=== PATIENT | female | born 1930 | race Asian ===

== ENCOUNTER 2016-12-24 10:30 | Emergency (ER) | payer MEDICARE ==
[~2016-12-24] VITALS: Ht 162.6 cm; Wt 59.1 kg
[2016-12-24 10:37] VITALS: BP 141/63; PULSE 75; RESP 16; O2SAT 98
--- NOTE | 2016-12-24 10:47 | ED.REPORT ---
HPI-General Illness Date of Service Dec 24, 2016 ED Provider: Mt Clifford MD Pt is a healthy 86 year old female who presents to the ED via EMS complaining of constant, "sharp" right shoulder pain onset last night s/p falling. She reports that her pain does not radiate and has a 7/10 severity that is exacerbated by movement. She states she slipped on a plastic bag at home last night and extended her arms to catch herself when she heard a "click" in her right shoulder. She laid on the ground for 10-15 minutes before she was able to get up. Pt denies loss of consciousness, headache, vision changes, SOB, lightheadedness, bowel or bladder incontinence, urinary retention, chest pain, elbow pain, back pain, neck pain, wrist pain, or injury to any other body part. Patient is not on blood thinners and did not hit her head. She was feeling well prior to falling and did not have any chest pain, lightheadedness, dizziness, or other symptoms; she states that she merely slipped on a bag. Nursing Notes Stated Complaint: RT SHOULDER PAIN Chief Complaint: Extremity Trauma Nursing Notes Reviewed: Yes General Time Seen by MD: 10:42 Chief Complaint Other (Right shoulder pain ) Hx Obtained From: Patient Arrived By: Ambulance Sudden in Onset?: No Onset Occurred: Yesterday Symptom Duration: Constant Caused by: Fall on ground Context: Occurred at: Home injury Location: : Shoulder right Quality: Painful, Sharp Radiation: : Does not radiate Severity: Current: Pain level 7 out of 10 Severity: Maximum: Pain level 7 out of 10 Pertinent Negative: Pt denies other symptoms Exacerbated by: Moving affected area Pertinent Negative: Relieved by nothing Recent Healthcare: No recent doctor visit, No recent hospitalization Similar Sx Previous: No Past Medical History Past Medical History Denies Past Surgical History Stent in spine in 2007 Social History Other Social History: Lives alone Ambulatory Status Independent Review of Systems Right shoulder pain No wrist pain No elbow pain Full Review of Systems Constitutional: Denies: Chills, Fever, Weakness - generalized Eyes: Denies: Diplopia Ears / Nose / Throat: Denies: Sore throat Respiratory: Denies: Shortness of breath Cardiovascular: Denies: Chest pain GI: Denies: Abdominal pain Female: Denies: Incontinence, Urination decreased Musculoskeletal: Denies: Back pain, Neck pain Skin: Denies Rash Neurologic: Denies: Change LOC, Headache, Lightheaded, Vision change Psychiatric: Denies: Change mental status Complete sys rev & neg: except as marked. Physical Exam Nursing note and vitals reviewed. Constitutional: Well-developed, well-nourished. Not diaphoretic. Head: Normocephalic and atraumatic. Mouth/Throat: Oropharynx is clear and moist. No oropharyngeal exudate. Eyes: EOM are normal. Pupils are equal, round, and reactive to light. Neck: Supple, no tracheal deviation. Cardiovascular: Normal rate, regular rhythm. Equal and intact distal pulses throughout. Pulmonary/Chest: Effort normal and breath sounds normal. No respiratory distress. Abdominal: Soft. No distension. There is no tenderness, rebound, or guarding. Bowel sounds present. Musculoskeletal: No stepoff or tenderness to her cervical, thoracic, or lumbar spine. Deformity to R shoulder. Unable to internally rotate R shoulder. No elbow or wrist tenderness. No snuffbox tenderness to palpation. Neurological: AOx3. Grossly nonfocal exam. Strength and sensation intact and equal to bilateral upper and lower extremities. Skin: Warm and dry, no rashes or pallor appreciated. Psychiatric: Appropriate mood and affect. Behavior appears normal. Vital Signs Vital Signs Date Time Temp Pulse Resp B/P Pulse Ox O2 Delivery O2 Flow Rate FiO2 12/24/16 15:28 66 13 150/70 95 Room Air 12/24/16 12:12 78 15 145/56 99 Room Air 12/24/16 10:37 36.8 75 16 141/63 98 Room Air Initial VS: Reviewed Interpretation & Diagnostics Lab Results Interpretation Test 12/24/16 11:45 Hold Purple Top Tube Received (Received) Hold Blue Top Tube Received (Received) Hold [place] Top Tube Received (Received) X-Ray Interpretation Xray Interpretation: Right Shoulder X-Ray: IMPRESSION: Anteroinferior dislocation of the humeral head with an impaction fracture (prominent Hill-Sachs deformity) of the greater tuberosity of the humeral head. A small avulsion fracture may be arising from either the humeral head or the glenoid fossa. A bony Bankhart injury is suspected. CT would be helpful for better characterization following reduction. Dictated by: Ricardo Roth M.D. on 12/24/2016 at 11:24 Approved by: Ricardo Roth M.D. on 12/24/2016 at 11:25 X-Ray Ordered: Shoulder right Interpretation / Wet Read by: Interpret - Radiologist Xray Interpretation: Right Humerus X-Ray: IMPRESSION: Anterior dislocation of the right humeral head with impaction of the superior humeral head along the anteroinferior aspect of the glenoid fossa. Small avulsion fracture is noted. Dictated by: Ricardo Roth M.D. on 12/24/2016 at 11:22 Approved by: Ricardo Roth M.D. on 12/24/2016 at 11:24 X-Ray Ordered: Humerus right Interpretation / Wet Read by: Interpret - Radiologist Xray Interpretation: Shoulder X-Ray: IMPRESSION: Unchanged alignment of the right shoulder with continued anteroinferior dislocation of the humeral head with an associated prominent Hill-Sachs deformity and probable bony Bankart. Dictated by: Ricardo Roth M.D. on 12/24/2016 at 12:47 Approved by: Ricardo Roth M.D. on 12/24/2016 at 12:48 X-Ray Ordered: Shoulder right Interpretation / Wet Read by: Interpret - Radiologist CT Head Interpretation IMPRESSION: 1. No acute intracranial hemorrhage. 2. Chronic small vessel ischemic changes and parenchymal volume loss. Dictated by: Ricardo Roth M.D. on 12/24/2016 at 12:11 Approved by: Ricardo Roth M.D. on 12/24/2016 at 12:13 Study: Head CT no contrast Interpretation / Wet Read by: Interpret - Radiologist Procedures Proced Mod Sedation/Analgesia Time: 14:35 Procedure Performed by: ED physician Sedation Time: 31 - 45 min Consent / Setup: Informed consent provided, Consent from patient Indication: Shoulder reduction Preparation: front desk monitor applied, Pulse oximeter applied, Constant attendance, IV access established, Supplemental oxygen, Procedure explained, Suction available, End tidal CO2 mon applied Mallampati: Class & Anatomy: 2 top tonsil/uvula/palate Airway Exam: Normal facial anatomy, Normal neck anatomy CVS/Resp Exam: Normal breath sounds Neuro Exam: Alert, No acute distress, Responsive Sedation: Sedation: Ketamine, Sedation: Propofol ASA Classification: 2 mild systemic disease Response During Procedure: Handled secretions adeq, Maintained airway well, Oxygenation stable, Sedation appropriate, Vital signs stable Complications During/After: None Reversal: None required Mental Status After Procedure: Alert, Oriented X3 Post-Procedure: Alert prior to discharge, Pt rtn pre-proc baseline Attestation: I performed procedure, I performed sedation Reduction Dislocated Shoulder Time: 13:12 Procedure Performed by: ED physician Consent / Setup: Informed consent provided, Consent from patient, Time-out performed, Hand hygiene observed, Stand sterile technique Procedural Sedation/Analgesia: Sedation: Ketamine, Sedation: Propofol Which Shoulder and Technique: Right shoulder, Scapular manipulation, Traction- counter-traction Neurovascular: Intact pre-procedure, Intact post-procedure Post-Procedure / Complications: Reduced per examination, Procedure successful, X-ray disloc reduced, Tolerated procedure well, Patient stable Procedures Proced Mod Sedation/Analgesia Physician left room at 1500. Respiratory therapy still in attendance. Time: 14:39 Procedure Performed by: ED physician Consent / Setup: Informed consent provided, Consent from patient, Time-out performed, Hand hygiene observed, Position supine Indication: Shoulder reduction Preparation: front desk monitor applied, Pulse oximeter applied, Constant attendance, IV access established, Eval last meal time, Supplemental oxygen, Procedure explained, End tidal CO2 mon applied VS Prior to Procedure: All vital signs normal Airway Exam: Normal anatomy CVS/Resp Exam: Normal breath sounds, Normal heart sounds Neuro Exam: Alert Sedation: Sedation: Ketamine, Sedation: Propofol ASA Classification: 1 normal healthy patient Response During Procedure: Handled secretions adeq, Maintained airway well, Oxygenation stable, Sedation appropriate, Vital signs stable Complications During/After: None Reversal: None required Mental Status After Procedure: Alert Post-Procedure: Alert prior to discharge, Vital signs normal Attestation: I performed procedure, I performed sedation Reduction Dislocated Shoulder Time: 14:39 Procedure Performed by: ED physician Consent / Setup: Informed consent provided, Consent from patient, Time-out performed, Oxygen administered, Pulse oximeter applied, front desk monitor applied , Hand hygiene observed Procedural Sedation/Analgesia: Sedation: Ketamine, Sedation: Propofol Which Shoulder and Technique: Right shoulder Neurovascular: Intact pre-procedure, Intact post-procedure Post-Procedure / Complications: Not reduced per exam, Procedure not successful , Tolerated procedure well, Patient stable Re-Eval/Medical Decision Med Decision/Clinical Course 86-year-old female presenting to the ED after a clear mechanical fall yesterday evening, now with severe right shoulder pain. She was not having any chest pain , dyspnea, lightheadedness, or any other complaints prior to the fall that would suggest anything other than a mechanical etiology. She has no other complaints at this time aside from her right shoulder pain and chronic back pain. X-ray demonstrates an anterior inferior shoulder dislocation of her right arm with a Hill-Sachs deformity and possible bony Bankart lesion. I discussed the patient with Dr. Albrecht, as per below; reduction and then sling with follow up tomorrow to make an appointment likely for early next week. Reduction performed as per above; initially unsuccessful using a local nerve block, however after adequate sedation was achieved, we were able to reduce with both clinical and radiographic evidence of adequate reduction. Neurovascularly intact both pre-and post procedure. A CT of the patient's head was obtained given her age and the fall; this was negative. No neck or back pain acutely and no bony tenderness to palpation, no bowel or bladder incontinence, urinary retention, etc. Plan as per above. Plan discharge home with very careful return precautions, PCP and ortho follow-up. Patient agreeable to the plan as stated, no further questions. Source of Hx: Old records Time of Eval: 13:12 Re-Evaluation/Progress Note: Pt rechecked. Performed right shoulder reduction that was unsuccessful. Pt reported nausea and dizziness. Time of Eval: 14:37 Re-Evaluation/Progress Note: Pt rechecked. Performed right shoulder reduction again. 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 Albrecht. Reduce shoulder, sling, and F/U in clinic. Counseled Regarding: Diagnosis, Lab results, Need for follow-up, When/why to return to ED Discharge & Departure Primary Impression: Closed fracture dislocation of shoulder Encounter type: initial encounter Laterality: right Qualified Code: S42.91XA - Fracture of right shoulder girdle, part unspecified, initial encounter for closed fracture Disposition: Home Discharge Condition All VS Reviewed: Yes Condition: Stable Referrals: Luis Osman MD (PCP) Scribe Attestation Portions of this note were transcribed by Karla Boles and Jordan Pal. I, Dr. Clifford, personally performed the history, physical exam and medical decision-making; I reviewed and confirmed the accuracy of the information in the transcribed note. Signed by: Elizabeth Paez, 12/24/16. copies to: Luis Osman MD, William B MD Dec 24, 2016 10:47 Karla Boles Dec 24, 2016 11:35 JORDAN PAL Dec 24, 2016 15:14
[2016-12-24] MEDS ORDERED: HYDROmorphone 0.5 mg/0.5 mL iSecure Syringe ONE (12:05)
[2016-12-24 12:12] VITALS: BP 145/56; PULSE 78; RESP 15; O2SAT 99
--- NOTE | 2016-12-24 12:25 | DRSVH ---
PROCEDURE: X-RAY RIGHT HUMERUS, MINIMUM TWO VIEWS ([id number]) INDICATIONS: Right shoulder injury TECHNIQUE: 2 views of the humerus were acquired. COMPARISON: [facility], CR, XR SHOULDER MIN 2VW RT, 12/24/2016, 11:23. FINDINGS: Anterior dislocation of the right humeral head with respect to the glenoid is present. An avulsion f racture overlying the greater tuberosity is noted, which may have either arising from the glenoid fos sa or the humeral head. Prominent Hill-Sachs deformity is present. There is soft tissue swelling. No additional fractures are appreciated. IMPRESSION: Anterior dislocation of the right humeral head with impaction of the superior humeral hea d along the anteroinferior aspect of the glenoid fossa. Small avulsion fracture is noted. Dictated by: Ricardo Roth M.D. on 12/24/2016 at 11:22 Approved by: Ricardo Roth M.D. on 12/24/2016 at 11:24
--- NOTE | 2016-12-24 12:27 | DRSVH ---
PROCEDURE: X-RAY RIGHT SHOULDER, MINIMUM TWO VIEWS ([id number]) INDICATIONS: Right shoulder injury. TECHNIQUE: 3 views of the shoulder were acquired. COMPARISON: [facility], CR, XR HUMERUS 2VW RT, 12/24/2016, 11:23. FINDINGS: Bones: An anteroinferior dislocation of the humeral head with respect to the glenoid is evident with impaction of the greater tuberosity of the humeral head along the undersurface of the glenoid. A sma ll avulsion fracture along the periphery of the joint space is identified, laterally. Degenerative c hanges of this joint are noted. No additional fractures are appreciated. No suspicious osseous lesi ons are identified. Soft tissues: No suspicious soft tissue calcifications. IMPRESSION: Anteroinferior dislocation of the humeral head with an impaction fracture (prominent Hill -Sachs deformity) of the greater tuberosity of the humeral head. A small avulsion fracture may be ar ising from either the humeral head or the glenoid fossa. A bony Bankhart injury is suspected. CT wo uld be helpful for better characterization following reduction. Dictated by: Ricardo Roth M.D. on 12/24/2016 at 11:24 Approved by: Ricardo Roth M.D. on 12/24/2016 at 11:25
[2016-12-24] MEDS ORDERED: Lidocaine 1% 50 mL Inj NERVEBLOCK ONE (12:55)
--- NOTE | 2016-12-24 13:14 | DRSVH ---
PROCEDURE: CT BRAIN WITHOUT CONTRAST ([id number]) INDICATIONS: fall, head injury TECHNIQUE: Noncontrast 4.5 mm thick angled axial sections acquired from the foramen magnum to the vertex, with c oronal reformats. COMPARISON: None. FINDINGS: Image quality: Motion artifact is present on several imaging sequences. The study is felt to be diag nostic. Brain: There is no acute intra-axial or extra-axial hemorrhage. No extra-axial fluid collection is i dentified. There is no midline shift or mass effect. The orbits are grossly unremarkable. No large areas of diffusely decreased attenuation are evident within the brain to suggest diffuse cer ebral edema. Confluent areas of low attenuation are seen within the periventricular white matter of the supratentorial brain. Nonspecific mild thickening involving the midline occiput is present. The ventricles and cortical sulci are moderately prominent. Bones: Calvarium and visualized facial bones are grossly intact. The imaged paranasal sinuses and m astoid air cells are clear. IMPRESSION: 1. No acute intracranial hemorrhage. 2. Chronic small vessel ischemic changes and parenchymal volume loss. Dictated by: Ricardo Roth M.D. on 12/24/2016 at 12:11 Approved by: Ricardo Roth M.D. on 12/24/2016 at 12:13
--- NOTE | 2016-12-24 13:50 | DRSVH ---
PROCEDURE: X-RAY RIGHT SHOULDER, ONE VIEW ([id number]) INDICATIONS: post reduction TECHNIQUE: 1 views of the shoulder were acquired. COMPARISON: [facility], CR, XR SHOULDER MIN 2VW RT, 12/24/2016, 11:23. FINDINGS: The superior aspect of the humeral head remains impacted along the inferior aspect of the glenoid wit h anterior dislocation of the humeral head with respect to the glenoid. Small fracture fragment is a gain evident overlying the joint space. No new fractures are appreciated. IMPRESSION: Unchanged alignment of the right shoulder with continued anteroinferior dislocation of th e humeral head with an associated prominent Hill-Sachs deformity and probable bony Bankart. Dictated by: Ricardo Roth M.D. on 12/24/2016 at 12:47 Approved by: Ricardo Roth M.D. on 12/24/2016 at 12:48
[2016-12-24] MEDS ORDERED: Ketamine 10 mg/mL 20 mL Inj IV ONE (14:05)
[2016-12-24] MEDS ORDERED: Propofol 10 mg/mL 20 mL Inj IVPUSH ONE (14:05)
[2016-12-24] MEDS ORDERED: Ondansetron 2 mg/mL 2 mL Inj ONE (14:31)
[2016-12-24 15:28] VITALS: BP 150/70; PULSE 66; RESP 13; O2SAT 95
--- NOTE | 2016-12-24 15:58 | DRSVH ---
PROCEDURE: X-RAY RIGHT SHOULDER, MINIMUM TWO VIEWS ([id number]) INDICATIONS: post reduction TECHNIQUE: 2 views of the shoulder were acquired. COMPARISON: [facility], CR, XR SHOULDER 1VW RT, 12/24/2016, 13:26. FINDINGS: Interval closed reduction of the dislocated right humeral head is occurred. The humeral head appears to normally articulate with the glenoid fossa. The Hill-Sachs deformity is less well apparent on th e current exam as is the overlying adjacent small avulsion fracture. There is mild irregularity carla g the anteroinferior margin of the glenoid. However, no displaced glenoid fracture is evident. IMPRESSION: Anatomic alignment of the humeral head with respect to the glenoid with continued Hill-Sa chs deformity and possible bony Bankart injury. Dictated by: Ricardo Roth M.D. on 12/24/2016 at 14:56 Approved by: Ricardo Roth M.D. on 12/24/2016 at 14:57
[2016-12-24 16:34] VITALS: BP 157/66; PULSE 68; RESP 13; O2SAT 100
[2016-12-24] MEDS ORDERED: Ondansetron 2 mg/mL 2 mL Inj IVPUSH ONE (19:05)
[2016-12-24 20:23] VITALS: BP 140/78; PULSE 64; RESP 16; O2SAT 97
== END 2016-12-24 20:00 | disposition home or self-care (01) ==
LOC: SED 10:30
DX: S42.251A Displaced fracture of greater tuberosity of right humerus, initial encounter for closed fracture (principal); S43.014A Anterior dislocation of right humerus, initial encounter; W01.10XA Fall on same level from slipping, tripping and stumbling with subsequent striking against unspecified object, initial encounter; Y93.89 Activity, other specified; Y92.009 Unspecified place in unspecified non-institutional (private) residence as the place of occurrence of the external cause; Y99.8 Other external cause status; Z98.890 Other specified postprocedural states
CPT/HCPCS: 23650; 70450; 73020; 73030; 73060; 94799; 96374; 96375; 96376; 99152; 99153; 99285; J1170; J2405; J2704

== ENCOUNTER 2016-12-29 13:52 | Observation (INO) | payer MEDICARE ==
[~2016-12-29] VITALS: Ht 162.6 cm; Wt 59.1 kg
--- NOTE | 2016-12-29 14:02 | ED.REPORT ---
HPI-Back Pain 40 and Over Date of Service Dec 29, 2016 ED Provider: Dr. Costello Pt is a generally healthy 86 y/o female presenting to the ED via EMS c/o worsening back pain onset about 4 days ago. The patient had a ground level fall on 12/24 which caused a dislocated R shoulder with associated Hill-Sachs deformity and possible bony [place] injury. The dislocation was reduced successfully in the ED. Since 1 day after being discharged, she has been experiencing severe low back pain (midline>L>R) which is exacerbated with movement. Pt denies any leg weakness or numbness, bowel or bladder incontinence. She made an appointment with an orthopedist but the appointment is scheduled for early January which is too far away for her. She lives at home by herself and says that she is able to take care of herself such as cooking and cleaning but the pain is unbearable. She says she was given no pain medication when she was discharged. She is also c/o constipation and abdominal bloating for 2 days. Nursing Notes Stated Complaint: BACK PAIN Nursing Notes Reviewed: Yes Allergies: Coded Allergies: No Known Allergies (Unverified , 12/29/16) Scheduled Polyethylene Glycol 3350 (Miralax) 17 Gm Powd.pack 17 GM PO DAILY Scheduled PRN oxyCODONE-Acetaminophen 5-325 mg (oxyCODONE-Acetaminophen 5-325 mg) 1 Each Tablet 1-2 TAB PO Q6H PRN PRN For Pain Miscellaneous Medications Cholecalciferol (Vitamin D3) (Vitamin D3) 5,000 Unit Tab.rapdis Unknown Dose PO Multivitamin (Once Daily) 1 Each Tablet 1 EACH PO [place]-3 Fatty Acids (Fish Oil) 500 Mg Capsule. 500 MG PO General Time Seen by MD: 14:01 Chief Complaint Back pain Hx Obtained From: Patient Arrived By: Walk-in Sudden in Onset?: No Onset Occurred: 4 days ago Symptom Duration: Since onset Location: : Perispinal lumbar: Spinal lumbar area Quality: Painful Severity: Current: Moderate Severity: Maximum: Severe Exacerbated by: Bending, Movement, Twisting, Walking Recent Healthcare: Recent doctor visit Past Medical History Past Medical History Denies Past Surgical History Stent in spine in 2007 Left knee Social History Other Social History: Lives alone Ambulatory Status Independent Review of Systems Constitutional: Denies: Chills, Fever Respiratory: Denies: Shortness of breath Cardiovascular: Denies: Chest pain GI: Reports: Constipation, Denies: Nausea, Vomiting Musculoskeletal: Reports: Extremity pain, Lumbar pain Neurologic: Denies: Bladder dysfunction, Bowel dysfunction, Focal weakness, Numbness, Weakness Complete sys rev & neg: except as marked. Physical Exam Initial Vital Signs Vital Signs (First) Date Time Temp Pulse Resp B/P Pulse Ox O2 Delivery O2 Flow Rate FiO2 12/29/16 14:05 37.7 90 20 119/54 96 Room Air Initial VS: Reviewed Head / Eyes: Atraumatic, Normocephalic ENT: Mucous membranes moist, Conjunctiva normal Neck: Supple, Full range of motion Skin: Warm, Dry, No cyanosis Psychiatric: Mood/affect normal, Behavior normal, Normal thought content General/Constitutional: Awake, Alert, No acute distress, Cooperative, Not toxic appearing Respiratory / Chest: Breath sounds NL, Breath sounds = bilat, No respiratory distress, No rales, No rhonchi, No wheezing Cardiovascular: Heart rate NL, Regular rhythm, Heart sounds NL, No murmurs Abdomen: Atraumatic, Soft, Non-tender, No guarding, No rebound, No distention Back: Atraumatic Midline sacral tenderness Neurologic: Oriented X3, Speech NL, No motor deficits, No sensory deficits, CN II - XII intact, Memory NL Upper Extremity / MS: No erythema, No deformity, Neurologic intact, Vascular intact Significant bruising over the mid-bicep of the RUE No shoulder deformity Strength and sensation intact Interpretation & Diagnostics Lab Results Interpretation Result Diagram: 12/29/16 1932 12/30/16 0657 Test 12/29/16 19:32 White Blood Count 6.8th/mm3 (3.8-10.1) Red Blood Count 3.44mil/mm3 (3.90-5.20) Hemoglobin 10.6g/dL (12.0-15.6) Hematocrit 31.3% (35.0-46.0) Mean Corpuscular Volume 91.0fL (81-100) Mean Corpuscular Hemoglobin 30.8pg (27.0-35.0) Mean Corpuscular Hemoglobin Concent 33.9% (32.0-37.0) Red Cell Distribution Width 13.2% (12.3-15.4) Platelet Count 164bil/L (150-400) Neutrophils (%) (Auto) 80.3% (40-74) Lymphocytes (%) (Auto) 6.5% (14-46) Monocytes (%) (Auto) 12.8% (4-12) Eosinophils (%) (Auto) 0% (0-5) Basophils (%) (Auto) 0.1% (0-3) Iron Level 21ug/dL (35-150) Total Iron Binding Capacity 221ug/dL (250-450) Percent Iron Saturation 10%sat (15-50) Unsaturated Iron Binding 200.3ug/dL Thyroid Stimulating Hormone (TSH) 1.580uIU/mL (0.450-4.500) Hold Curry Top Tube Received (Received) X-Ray Abdominal Interpretation IMPRESSION: Colonic obstipation, L1 compression fracture that is better visualized by lumbosacral spine plain film imaging which included lateral view acquisition. Dictated by: Good Soriano M.D. on 12/29/2016 at 15:30 Approved by: Good Soriano M.D. on 12/29/2016 at 15:31 Interpretation / Wet Read by: Interpret - Radiologist X-Ray Interpretation Xray Interpretation: IMPRESSION: L1 moderately severe compression fracture, potentially acute in this clinical circumstance. MR scanning could accurately establish chronicity of injury, and also established the degree of spinal stenosis that may result. There is approximately 72% vertebral height reduction associated with this abnormality (which was not present on prior CT scanning 01/07/15). Dictated by: Good Soriano M.D. on 12/29/2016 at 15:26 Approved by: Good Soriano M.D. on 12/29/2016 at 15:29 Study Performed: Lumbar spine Interpretation / Wet Read by: Interpret - Radiologist Xray Interpretation: IMPRESSION: No trauma found. Dictated by: Good Soriano M.D. on 12/29/2016 at 15:31 Approved by: Good Soriano M.D. on 12/29/2016 at 15:31 Study Performed: Sacrum and coccyx Interpretation / Wet Read by: Interpret - Radiologist Re-Eval/Medical Decision Med Decision/Clinical Course 86-year-old female who lives at home by herself returns after a visit on 12/24 related to a ground-level fall with new findings of a severe compression fracture. The patient is quite interested in going home and taking care of herself, but both her nurse and I are quite concerned as she requires 2 person assist to just get out of bed. Upon adequately treating her pain after [place] 7.5 mg followed by Percocet 10 mg, she became too sleepy to care for herself and go home. She agrees to an observation admit. I think she may need placement in a facility temporarily given her level of discomfort and inability to function on pain medicine Source of Hx: Old records Re-Evaluation/Progress #1: Time of Eval: 17:08 Re-Evaluation/Progress Note: Pt rechecked. Still experiencing significant back pain despite pain medications. Re-Evaluation/Progress #2: Time of Eval: 17:30 Re-Evaluation/Progress Note: Pt rechecked. She is still in quite severe pain and cannot ambulate. Discussed admission for pain control and coordination of outpatient care. She would like to try another pain med and she hopes to be discharged. Re-Evaluation/Progress #3: Re-Evaluation/Progress Note: Patient is feeling better after 10 mg of Percocet and would like to go home. She will call for a ride. I again discussed with her the importance of follow-up since she is not willing to be admitted. I worry about how she will do at home at 86 years old with the level of pain she appears to be in, however she appears to be in her right mind and able to make her decisions. She appears to be a very tough lady Re-Evaluation/Progress #4: Time of Eval: 19:09 Re-Evaluation/Progress Note: Patient rechecked and states she feels too sleepy to eat, get out of bed, or go home after taking the Percocet. It did seem to help her pain however. Given her need for assistance x2 with simple things like just getting out of bed, and the way the pain medication affects her, she is now agreeable to an observation admit. will start an IV and check baseline labs Consultation #1: Referral / Consult Name: Arpan Albrecht MD Call Returned at: 17:17 Certified Emergency Vehicle Technician: Agrees with eval, Agrees with plan Note: Recommends f/u with spine surgery in [place] or [place]. Consultation #2: Referral / Consult Name: Fadi Kam MD Requested Call at: 07:08 Call Returned at: 07:08 Certified Emergency Vehicle Technician: Will see patient, Agrees with plan, Accepts admit Note: Patient will be put in as observation status Counseled Regarding: Diagnosis, Need for admission Discharge & Departure Impression: Primary Impression: Intractable low back pain Additional Impressions: Compression fracture of L1 lumbar vertebra Encounter type: initial encounter Fracture type: closed Qualified Code: S32.010A - Wedge compression fracture of first lumbar vertebra, initial encounter for closed fracture Fall from ground level Constipation Constipation type: unspecified constipation type Qualified Code: K59.00 - Constipation, unspecified Disposition: ADMITTED TO HOSPITAL Discharge Condition All VS Reviewed: Yes Condition: Stable Referrals: Luis Osman MD (PCP) Scribe Attestation Portions of this note were transcribed by Kevin French. I, Dr. Costello personally performed the history, physical exam and medical decision-making; I reviewed and confirmed the accuracy of the information in the transcribed note. copies to: Luis Osman MD, Gary R DO Dec 29, 2016 14:02 KEVIN FRENCH Dec 29, 2016 14:19
[2016-12-29 14:05] VITALS: BP 119/54; PULSE 90; RESP 20; O2SAT 96
[2016-12-29] MEDS ORDERED: MULT-666 PO (14:13)
[2016-12-29] MEDS ORDERED: CHOL500062 PO (14:13)
[2016-12-29] MEDS ORDERED: HYDROcodone-APAP 5-325 mg Tablet PO ONE (14:35)
--- NOTE | 2016-12-29 15:31 | DRSVH ---
PROCEDURE: X-RAY LUMBAR SPINE, 2 OR 3 VIEW INDICATIONS: sacral /low back pain, s/p fall TECHNIQUE: 3 views of the lumbar spine were acquired. COMPARISON: [facility], CT, CT ABD PELVIS W CON, 01/07/2015, 15:17. FINDINGS: Bones: 5 ito-kqm-lactixz vertebrae are present. There is normal bony alignment. There is a moderate ly severe L1 vertebral body compression fracture, with approximately 72% vertebral height reduction a t the middle third of the vertebral body when compared to the level immediately below. No suspicious bony lesions. Soft tissues: Overlying bowel gas pattern is normal. No suspicious soft tissue calcifications. IMPRESSION: L1 moderately severe compression fracture, potentially acute in this clinical circumstanc e. MR scanning could accurately establish chronicity of injury, and also established the degree of s evan stenosis that may result. There is approximately 72% vertebral height reduction associated wit h this abnormality (which was not present on prior CT scanning 01/07/15). Dictated by: Good Soriano M.D. on 12/29/2016 at 15:26 Approved by: Good Soriano M.D. on 12/29/2016 at 15:29
--- NOTE | 2016-12-29 15:32 | DRSVH ---
PROCEDURE: X-RAY ABDOMEN, ONE VIEW ([id number]) INDICATIONS: abdominal distension, decreased bm TECHNIQUE: One view of the abdomen acquired. COMPARISON: [facility], CR, XR LUMBAR SPINE 2 OR 3VW, 12/29/2016, 14:48. FINDINGS: Surgical changes and devices: None. Bowel: Bowel gas pattern is normal. Soft tissues: No suspicious abdominal calcifications. Visualized solid organ contours appear normal in size. Bones: No suspicious bony lesions and indicate presence of underlying infection or neoplasm. The L1 compression fracture seen by lumbosacral spine plain film also obtained today is less well-visualize d by this study.. IMPRESSION: Colonic obstipation, L1 compression fracture that is better visualized by lumbosacral spi ne plain film imaging which included lateral view acquisition. Dictated by: Good Soriano M.D. on 12/29/2016 at 15:30 Approved by: Good Soriano M.D. on 12/29/2016 at 15:31
--- NOTE | 2016-12-29 15:33 | DRSVH ---
PROCEDURE: X-RAY SACRUM AND COCCYX, MINIMUM THREE VIEWS ([id number]) INDICATIONS: sacral /low back pain, s/p fall TECHNIQUE: 3 views of the sacrum and coccyx acquired. COMPARISON: None. FINDINGS: Bones: No fractures or dislocations. No suspicious bony lesions. Soft tissues: Visualized bowel gas pattern is normal. No suspicious soft tissue densities. IMPRESSION: No trauma found. Dictated by: Good Soriano M.D. on 12/29/2016 at 15:31 Approved by: Good Soriano M.D. on 12/29/2016 at 15:31
[2016-12-29 16:31] VITALS: BP 112/59; PULSE 80; RESP 21; O2SAT 96
[2016-12-29] MEDS ORDERED: HYDROcodone-APAP 10-325 mg PO ONE (17:25)
[2016-12-29] MEDS ORDERED: oxyCODONE-Acetamin 10-325 mg Tablet PO ONE (17:30)
[2016-12-29 18:30] VITALS: BP 118/64; PULSE 80; RESP 18; O2SAT 96
[2016-12-29] MEDS ORDERED: OXYC1TAB24 PO (18:43)
[2016-12-29] MEDS ORDERED: POLY17PO6 PO (18:45)
[2016-12-29] MEDS ORDERED: Polyethylene Glycol (PEG) 17 Gm Powder PO PRN (19:30)
[2016-12-29] MEDS ORDERED: Alum-Mag Hydrox-Simeth 30 mL Suspension PO PRN (19:30)
[2016-12-29] MEDS ORDERED: Ondansetron 2 mg/mL 2 mL Inj IVPUSH PRN (19:30)
[2016-12-29 19:41] LABS: BASOPHILS % (AUTO) 0.1 % (0-3); EOSINOPHILS % (AUTO) 0 % (0-5); MONOCYTES % (AUTO) 12.8 % (4-12); Mean Corpuscular Hemoglobin 30.8 pg (27.0-35.0); NEUTROPHILS % (AUTO) 80.3 % (40-74); Platelet Count 164 bil/L (150-400)
--- NOTE | 2016-12-29 20:07 | PCM.HPMED ---
Subjective Date of Service Dec 29, 2016 Primary Provider: Admitting Physician: Primary Care Physician: Luis Osman MD Attending Physician: Chief Complaint: Patient is an 86-year-old female without significant health history who recently had a ground-level fall with a right dislocated shoulder presents to the ED today with increasing lower back pain. History of Present Illness: Per patient, she reports significant lower back pain, worsened with any weightbearing activities including standing up, and improves with lying down in bed rest. Pain has been ongoing since last Wednesday after she suffered a ground-level fall tripped over her shopping bag onto a hard kitchen floor. Patient went to the ED at the time on 12/24/2016 found to have a right dislocated shoulder that was reduced. Patient denies pain radiating down her lower legs, nor does she have any numbness or tingling sensation in bilateral lower extremities. Patient further denies any bowel or bladder incontinency. Of note, patient refused to state her CODE STATUS as she does not want to discuss any negative events. She further states that she does not want her son who lives in [place] to be contacted with regard to her admission. Patient currently lives alone, amendable to receiving home health should she required. She however again, does not want to contact her son for fear of burdening him. In the ED, lumbar x-rays show moderately severe compression fracture of L1. Consulted orthopedics surgeon Arpan Valle recommended that patient be followed up outpatient. Given the patient requires a two-person assist however , patient is admitted on observation until a safety discharge plan can be in place. Review of Systems: A comprehensive review of systems was conducted with the patient and found to be negative except as above in the History of Present Illness. Allergies Coded Allergies: No Known Allergies (Unverified , 12/29/16) Home Medications Vitamin D3 5000 units daily Multivitamin Oxycodone acetaminophen 53 25 when necessary MiraLAX 17 mg by mouth when necessary PMH Osteoporosis History of cellulitis Bullous pemphigoid Surgical History Denies any surgical history Family History Brothers alive and well Father of unknown causes at 80 Sister alive and well 2 sons alive and well Social History Hx Alcohol Use: No Hx Substance Use: No Exam Vital Signs Vital Sign - Last Date Time Temp Pulse Resp B/P Pulse Ox O2 Delivery O2 Flow Rate FiO2 12/29/16 16:31 80 21 112/59 96 Room Air 12/29/16 14:05 37.7 Exam General: No acute distress, appropriately interactive HEENT: Normocephalic, atraumatic. PERRLA, EOMI, Anicteric sclerae, moist conjunctivae. Neck: No JVD, No bruits. No lymphadenopathy or thyromegaly. Cardiovascular: Regular rate and rhythm with no murmurs, rubs, or gallops appreciated Pulmonary: b/l air sound with no crackles, wheezes, or rhonchi. no use of accessory muscles. Abdomen: +Bowel sound, Soft, nontender, nondistended. Extremities: No clubbing or cyanosis, no lymphedema, no b/l lower leg edema Skin: Normal temperature, turgor, and texture; no rash. No visualized skin ulcer. Neurological: CN II-VII grossly intact, moving equally on all 4 extremities, muscle strength 5 out of 5 on lower legs Psychiatric: Normal mood and affect. AOx3 Lab and Diagnostics Result Diagram: 12/29/161931 X-Rays, CTs and MRIs PROCEDURE: X-RAY LUMBAR SPINE, 2 OR 3 VIEW INDICATIONS: sacral /low back pain, s/p fall IMPRESSION: L1 moderately severe compression fracture, potentially acute in this clinical circumstance. MR scanning could accurately establish chronicity of injury, and also established the degree of spinal stenosis that may result. There is approximately 72% vertebral height reduction associated with this abnormality (which was not present on prior CT scanning 01/07/15). Dictated by: Good Soriano M.D. on 12/29/2016 at 15:26 PROCEDURE: X-RAY ABDOMEN, ONE VIEW ([id number]) INDICATIONS: abdominal distension, decreased bm IMPRESSION: Colonic obstipation, L1 compression fracture that is better visualized by lumbosacral spine plain film imaging which included lateral view acquisition. Dictated by: Good Soriano M.D. 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 Orthopedic indicates only indication for back surgery is with neurological symptoms which are absent at this time -Pain control Oxycodone 5 mg q4h prn -We will need to follow up outpatient with orthopedics in [facility] [address] [place] [address] Recent fall -Patient frail, required 2 person assist -Physical therapy order -TSH ordered -Social Work referral; evaluate for possible home health aide prior to discharge vs short-term stay at tertiary care facility Obstipation -miralax daily Normocytic anemia -Iron panel, vitamin B12, folic acid, and stool guaiac ordered Elevated LFTs -AST 42, ALT 75, with normal bili and alkaline phosphate -Hepatitis panel ordered CODE STATUS: Presumed full code, patient refused to state her wishes DVT prophylaxis heparin every 12 hours Patient Status: Patient is admitted under observation status with expected length of stay LESS than 2 midnights due to severity of presenting symptoms, risk of adverse event, and complexity of treatment plan. Resuscitation Status: CPR: Attempt Resuscitation Attending Statement The patient was seen and examined together with Dr. Sands on 12/29 and I agree with the history, exam and plan as outlined in the note above. Zen Sands DO Dec 29, 2016 20:07 Fadi Kam MD Dec 29, 2016 23:15
[2016-12-29 20:30] VITALS: BP 122/64; PULSE 78; RESP 18; O2SAT 98
[2016-12-29] MEDS ORDERED: HYDROcodone-APAP 7.5-325 mg Tablet PO PRN (20:45)
[2016-12-29] MEDS: Heparin 5,000 Unit/mL Inj SUBQ SCH (21:05)
[2016-12-29] MEDS ORDERED: HYDROcodone-APAP 5-325 mg Tablet PO PRN (21:20)
[2016-12-29 21:25] LABS: Unsaturated Iron Binding 200.3 ug/dL
[2016-12-29 21:41] VITALS: BP 105/63; PULSE 73; RESP 16; O2SAT 94
[2016-12-29 21:57] LABS: APPEARANCE,URINE CLEAR (CLEAR,HAZY); COLOR,URINE YELLOW (YELLOW); OCCULT BLOOD,URINE SMALL (NEGATIVE); UROBILINOGEN,URINE NORMAL (NORMAL)
[2016-12-29] MEDS ORDERED: OMEG500C PO (22:07)
[2016-12-29 22:11] VITALS: O2SAT 98
[2016-12-30 00:09] VITALS: BP 110/74; PULSE 74; RESP 18; O2SAT 96
[2016-12-30 00:48] VITALS: BP 105/63; PULSE 77; RESP 14; O2SAT 96
--- NOTE | 2016-12-30 06:35 | NUR ---
Admit/Shift Pt arrived onto unit approx 2119 with ED nurse, after report given by ED. VSS, pain 9-10/10 down to 7/10 with roxicodone. Pain only with activity. Pt unable to rise to sitting position or out of bed without full assistance. 1 person asst to BSC. No IV from ED, hospitalist confirmed that as long as she is eating and drinking fluids, she does not need an IV access at this time. Pt oriented to room, TV, call light, etc. and uses call light appropriately for assistance in getting to BSC. Pt reports constipation, 3 days since last BM. Her norm is every day. Stool softener given, she requested nothing more potent, prefers not taking medications. Frequent rounding continues.
[2016-12-30] MEDS ORDERED: Polyethylene Glycol (PEG) 17 Gm Powder PO SCH (08:30)
[2016-12-30 08:44] VITALS: BP 131/68; PULSE 91; RESP 16; O2SAT 95
[2016-12-30] MEDS: Heparin 5,000 Unit/mL Inj SUBQ SCH ×2 (09:04→19:30)
--- NOTE | 2016-12-30 11:17 | PCM.PNMED ---
Subjective Date of Service Dec 30, 2016 Subjective Patient seen and examined. Says she is feeling much better. Pain in control. Vitals noted. Exam Vital Signs Vital Sign - Last Date Time Temp Pulse Resp B/P Pulse Ox O2 Delivery O2 Flow Rate FiO2 12/30/16 08:44 37.9 91 16 131/68 95 Room Air Intake and Output 12/29/16 12/29/16 12/30/16 Cumulative From/Thru 15:00 23:00 07:00 12/29/16 14:05 - 12/30/16 06:13 Intake Total 250 ml 250 ml Output Total 400 ml 400 ml Balance -150 ml -150 ml Intake Oral 250 ml 250 ml IV Total 0 ml 0 ml Output Urine Total 400 ml 400 ml Exam General: No acute distress, appropriately interactive HEENT: Normocephalic, atraumatic. PERRLA, EOMI, Anicteric sclerae, moist conjunctivae. Neck: No JVD, No bruits. No lymphadenopathy or thyromegaly. Cardiovascular: Regular rate and rhythm with no murmurs, rubs, or gallops appreciated Pulmonary: b/l air sound with no crackles, wheezes, or rhonchi. no use of accessory muscles. Abdomen: +Bowel sound, Soft, nontender, nondistended. Extremities: No clubbing or cyanosis, no lymphedema, no b/l lower leg edema Skin: Normal temperature, turgor, and texture; no rash. No visualized skin ulcer. Neurological: CN II-VII grossly intact, moving equally on all 4 extremities, muscle strength 5 out of 5 on lower legs Psychiatric: Normal mood and affect. AOx3 Lab and Diagnostics Result Diagram: 12/29/16193112/30/16 0657 X-Rays, CTs and MRIs PROCEDURE: X-RAY LUMBAR SPINE, 2 OR 3 VIEW INDICATIONS: sacral /low back pain, s/p fall IMPRESSION: L1 moderately severe compression fracture, potentially acute in this clinical circumstance. MR scanning could accurately establish chronicity of injury, and also established the degree of spinal stenosis that may result. There is approximately 72% vertebral height reduction associated with this abnormality (which was not present on prior CT scanning 01/07/15). Dictated by: Good Soriano M.D. on 12/29/2016 at 15:26 PROCEDURE: X-RAY ABDOMEN, ONE VIEW ([id number]) INDICATIONS: abdominal distension, decreased bm IMPRESSION: Colonic obstipation, L1 compression fracture that is better visualized by lumbosacral spine plain film imaging which included lateral view acquisition. Dictated by: Good Soriano M.D. 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 indicates only indication for back surgery is with neurological symptoms which are absent at this time -Pain control Oxycodone 5 mg q4h prn -We will need to follow up outpatient with orthopedics in [facility] [address] [place] [address], [address] [place] [address] Recent fall -Patient frail, required 2 person assist -Physical therapy order -TSH ordered -Social Work referral; evaluate for possible home health aide prior to discharge vs short-term stay at tertiary care facility Hyponatremia - baseline low, asymptomatic - will monitor Obstipation -miralax daily Normocytic anemia -Iron panel noted, will start on iron supplementation - B12/folate pending Elevated LFTs -AST 42, ALT 75 -- > 69 , with normal bili and alkaline phosphate -Hepatitis panel ordered -no abdominal pain or signs of liver involvement CODE STATUS: Presumed full code, patient refused to state her wishes DVT prophylaxis heparin every 12 hours Patient Status: Patient is admitted under observation status with expected length of stay LESS than 2 midnights due to severity of presenting symptoms, risk of adverse event, and complexity of treatment plan. Resuscitation Status: CPR: Attempt Resuscitation Time spent 35 mins Govind Chester MD Dec 30, 2016 11:17
--- NOTE | 2016-12-30 11:46 | NUR ---
Case Management: Medicare BARBOSA and Medicare D brochure presented and explained to patient. Pt signed BARBOSA at 1120, original to chart, copy to patient. Shruthi Rendon RN
[2016-12-30] MEDS: FERROUS SULFATE 44 MG/ML PO SCH ×2 (12:00→17:18)
[2016-12-30 12:56] VITALS: BP 101/62; PULSE 61; RESP 16; O2SAT 96
--- NOTE | 2016-12-30 14:49 | NUR ---
Attempted evaluation but pt. was eating and requesting I return later. I will check in the a.m. Davidson Fay, OT/L
--- NOTE | 2016-12-30 16:58 | NUR ---
Social Work: Initial Assessment Data: See initial assessment. SW has received order from MD to see patient. EMR reviewed. Patient is a 86 year old female who was admitted on 12/29/2016 for intractable back pain/compression fracture per H&P. Patient's insurance is Medicare and PCP is Dr. Luis Osman. SW met with patient to discuss discharge planning. SW role explained. Patient is alert & oriented x3. Patient resides alone in a 1 story home with 3-4 steps at entrance. Home is located in [place]. Prior to admission, patient was independent with ADLs. Patient states that she has her own car and has been driving for 70 years. Patient states that her DPOA is her son Ken. 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 Patient denies being a caregiver for anyone. Patient states that upon discharge, she will take a taxi home. PT has evaluated patient and recommends a FWW. Patient states that she has a FWW that she can use at home. Patient is refusing home health services and inpatient/outpatient rehab services. Patient states that these services are "unnecessary". Patient informed SW that she is going home this evening no later than 1900. SW provided a discharge planning checklist booklet to patient and encouraged her to call with any questions. Phone number provided. After meeting with patient, SW met with RN to provide information obtained during assessment. RN informed SW that patient has informed staff that she is wanting to leave AMA. Per RN, MD has accepted patient's decision with leaving AMA. Patient has no additional needs at this time. Assessment: Patient will discharge home. Plan: Patient has decided to leave AMA. has been informed of patient's decision by staffing coordinator and has accepted patient's decision. Patient has decided to be transported by taxi. Patient has no additional needs at this time. DESEAN Zepeda Addendum: 12/30/16 at 1715 by JENNIFER CORRALES Amended: Links added.
[2016-12-30] MEDS ORDERED: OXYC1TAB24 PO (17:01)
--- NOTE | 2016-12-30 17:03 | PCM.DC.MED ---
Discharge Summary Date of Service Dec 30, 2016 Dates of Hospitalization Date of Hospital Admission Dec 29, 2016 at 20:32 Date of Discharge: Dec 30, 2016 Providers: Admitting Physician: Fadi Kam MD Primary Care Physician: Luis Osman MD Attending Physician: Augusta Reyes MD Procedures XRay, CTs & MRIs PROCEDURE: X-RAY LUMBAR SPINE, 2 OR 3 VIEW INDICATIONS: sacral /low back pain, s/p fall IMPRESSION: L1 moderately severe compression fracture, potentially acute in this clinical circumstance. MR scanning could accurately establish chronicity of injury, and also established the degree of spinal stenosis that may result. There is approximately 72% vertebral height reduction associated with this abnormality (which was not present on prior CT scanning 01/07/15). Dictated by: Good Soriano M.D. on 12/29/2016 at 15:26 PROCEDURE: X-RAY ABDOMEN, ONE VIEW ([id number]) INDICATIONS: abdominal distension, decreased bm IMPRESSION: Colonic obstipation, L1 compression fracture that is better visualized by lumbosacral spine plain film imaging which included lateral view acquisition. Dictated by: Good Soriano M.D. on 12/29/2016 at 15:30 Brief History Per patient, she reports significant lower back pain, worsened with any weightbearing activities including standing up, and improves with lying down in bed rest. Pain has been ongoing since last Wednesday after she suffered a ground-level fall tripped over her shopping bag onto a hard kitchen floor. Patient went to the ED at the time on 12/24/2016 found to have a right dislocated shoulder that was reduced. Patient denies pain radiating down her lower legs, nor does she have any numbness or tingling sensation in bilateral lower extremities. Patient further denies any bowel or bladder incontinency. Of note, patient refused to state her CODE STATUS as she does not want to discuss any negative events. She further states that she does not want her son who lives in [place] to be contacted with regard to her admission. Patient currently lives alone, amendable to receiving home health should she required. She however again, does not want to contact her son for fear of burdening him. In the ED, lumbar x-rays show moderately severe compression fracture of L1. Consulted orthopedics surgeon Arpan Valle recommended that patient be followed up outpatient. Given the patient requires a two-person assist however , patient is admitted on observation until a safety discharge plan can be in place. 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 Orthopedic indicates only indication for back surgery is with neurological symptoms which are absent at this time -Pain control Oxycodone 5 mg q4h prn -We will need to follow up outpatient with orthopedics in [facility] [address] [place] [address], [address] [place] [address] Recent fall -Patient frail, required 2 person assist -Physical therapy order -TSH ordered -Social Work referral; evaluate for possible home health aide prior to discharge vs short-term stay at tertiary care facility Hyponatremia - baseline low, asymptomatic - will monitor Obstipation -miralax daily Normocytic anemia -Iron panel noted, will start on iron supplementation - B12/folate pending Elevated LFTs -AST 42, ALT 75 -- > 69 , with normal bili and alkaline phosphate -Hepatitis panel ordered -no abdominal pain or signs of liver involvement Exam Vital Signs (Last) Date Time Temp Pulse Resp B/P Pulse Ox O2 Delivery O2 Flow Rate FiO2 12/30/16 12:56 36.9 61 16 101/62 96 Room Air Test 12/29/16 19:32 12/29/16 21:15 12/30/16 05:00 12/30/16 06:57 White Blood Count 6.8th/mm3 (3.8-10.1) Red Blood Count 3.44mil/mm3 (3.90-5.20) Hemoglobin 10.6g/dL (12.0-15.6) Hematocrit 31.3% (35.0-46.0) Mean Corpuscular Volume 91.0fL (81-100) Mean Corpuscular Hemoglobin 30.8pg (27.0-35.0) Mean Corpuscular Hemoglobin Concent 33.9% (32.0-37.0) Red Cell Distribution Width 13.2% (12.3-15.4) Platelet Count 164bil/L (150-400) Neutrophils (%) (Auto) 80.3% (40-74) Lymphocytes (%) (Auto) 6.5% (14-46) Monocytes (%) (Auto) 12.8% (4-12) Eosinophils (%) (Auto) 0% (0-5) Basophils (%) (Auto) 0.1% (0-3) Iron Level 21ug/dL (35-150) Total Iron Binding Capacity 221ug/dL (250-450) Percent Iron Saturation 10%sat (15-50) Unsaturated Iron Binding 200.3ug/dL Thyroid Stimulating Hormone (TSH) 1.580uIU/mL (0.450-4.500) Hold Curry Top Tube Received (Received) Urine Color Yellow (YELLOW) Urine Appearance Clear (CLEAR,HAZY) Urine pH 6.0 (5.0-8.0) Urine Specific [place] 1.020 (1.003-1.035) Urine Protein Tracemg/dL (NEG,TRACE) Urine Glucose (UA) Negativemg/dL (NEGATIVE) Urine Ketones Tracemg/dL (NEGATIVE) Urine Occult Blood Small (NEGATIVE) Urine Nitrite Negative (NEGATIVE) Urine Bilirubin Negative (NEGATIVE) Urine Urobilinogen Normalmg/dL (NORMAL) Urine Leukocyte Esterase Negative (NEGATIVE) Urine RBC 0-2/hpf (0-2) Urine WBC 0-5/hpf (0-5) Urine Epithelial Cells Occasional/hpf (NONE-MOD) Urine Crystals None seen (NONE SEEN) Urine Bacteria Few/hpf (NONE-FEW) Urine Hyaline Casts None/lpf (NONE) Urine Granular Casts None seen (NONE SEEN) Urine Waxy Casts None seen (NONE SEEN) Urine Red Blood Cell Casts None seen (NONE SEEN) Urine White Blood Cell Casts None seen (NONE SEEN) Urine Mucus Present (None Seen) Urine Trichomonas None seen (NONE SEEN) Urine Yeast None (NONE SEEN) Urinalysis Comment None Urine Culture Reflexed Not indicated Hold Urine Received (Received) Sodium Level 130mEq/L (134-144) Potassium Level 4.1mEq/L (3.5-5.2) Chloride Level 96mEq/L (97-108) Carbon Dioxide Level 21mmol/L (18-29) Blood Urea Nitrogen 20mg/dL (8-27) Creatinine 0.68mg/dL (0.57-1.00) Estimat Glomerular Filtration Rate 118mL/min (>59) Glucose Level 101mg/dL (60-99) Calcium Level 7.9mg/dL (8.5-10.1) Total Bilirubin 0.6mg/dL (0.0-1.2) Aspartate Amino Transf (AST/SGOT) 40U/L (0-50) Alanine Aminotransferase (ALT/SGPT) 69U/L (0-32) Alkaline Phosphatase 93U/L (25-165) Total Protein 6.3g/dL (6.4-8.4) Albumin 3.6g/dL (3.4-5.0) Hepatitis C Comment . Discharge Medications Discharge Medications Polyethylene Glycol 3350 (Miralax) 17 Gm Powd.pack 17 GM PO DAILY Prescribed by: NOLVIA MCKEON, DO As needed oxyCODONE-Acetaminophen 5-325 mg (oxyCODONE-Acetaminophen 5-325 mg) 1 Each Tablet 1-2 TAB PO Q6H PRN PRN For Pain Prescribed by: AUGUSTA REYES MD Miscellaneous Medications Cholecalciferol (Vitamin D3) (Vitamin D3) 5,000 Unit Tab.rapdis Unknown Dose PO (Reported) Multivitamin (Once Daily) 1 Each Tablet 1 EACH PO (Reported) [place]-3 Fatty Acids (Fish Oil) 500 Mg Capsule. 500 MG PO (Reported) Followup Plan Disposition: PATIENT SIGNED OUT AMA Follow-up with PCP in: 1 week Time spent 35 MINS Augusta Reyes MD Dec 30, 2016 17:03
[2016-12-30 18:09] VITALS: BP 133/75; PULSE 64; RESP 16; O2SAT 100
--- NOTE | 2016-12-30 18:13 | NUR ---
Patient very sure she would like to go home this evening. She is very independent, difficult at times to help, offer cares to due to refusal and "I can do it all myself". Instructed patient on fall prevention safety here in the hospital which she was resistant to. After discussion with patient and MD and SW involvement, patient will leave [facility] at 1900 by taxi to home. Attempted as much information and instruction about pain medications, resources for support, fall prevention at home prior to shift end and her leaving. Patient maintains independence and denial of need for help at home.
--- NOTE | 2016-12-30 20:35 | NUR ---
[employer] ordered by day shift arrived at 2024 and patient left assisted by security in a wheelchair with all her belongings. Paperwork all handled by day shift team prior to shift change.
[2016-12-31 02:14] LABS: Hepatitis A Antibody IgM Negative (Negative); Hepatitis B Core Antibody IgM Negative (Negative)
[2016-12-31 04:08] LABS: Vitamin B12 1176 pg/mL (211-946)
== END 2016-12-30 20:30 | disposition left against medical advice (07) ==
LOC: EDBD 13:52 → SED 13:52 → EDUNIT# 13:52 → MOC 20:32
PROVIDERS: ADMIT Hospitalist; ATTEND Hospitalist
DX: S32.010A Wedge compression fracture of first lumbar vertebra, initial encounter for closed fracture (principal); E87.1 Hypo-osmolality and hyponatremia; K59.00 Constipation, unspecified; D64.9 Anemia, unspecified; W18.30XA Fall on same level, unspecified, initial encounter; Y93.9 Activity, unspecified; Y92.9 Unspecified place or not applicable; Y99.8 Other external cause status; M81.0 Age-related osteoporosis without current pathological fracture; Z53.21 Procedure and treatment not carried out due to patient leaving prior to being seen by health care provider
CPT/HCPCS: 36415; 72100; 72220; 74000; 80053; 81000; 82607; 82746; 83540; 83550; 84443; 85025; 86705; 86709; 87340; 87341; 96372; 97162; 99285; G0378; G0472; J1644